=== PATIENT | male | born 1950 | race African-American/Black ===

== ENCOUNTER 2018-04-23 19:10 | Inpatient (IN) | payer MEDICARE, MEDICAID ==
[~2018-04-23] VITALS: Ht 170.2 cm; Wt 77.1 kg
[2018-04-23] MEDS ORDERED: MORPHINE SULFATE 4 MG/ML CPJ (NOT FOR IM USE) IV STA (20:37)
[2018-04-23] MEDS ORDERED: ONDANSETRON HCL 4MG/2ML INJ IV STA (20:37)
[2018-04-23 21:59] LABS: BASOPHILS % 0.2 % (0.0-2.0); EOSINOPHILS % 1.6 % (0.0-5.0); HEMATOCRIT. 43.7 % (42.0-52.0); LYMPHOCYTES % 16.6 % (20.0-50.0); MEAN CORPUSCULAR HEMOGLOBIN 28.5 pg (28.0-32.0); MEAN CORPUSCULAR VOLUME 88.9 fL (80.0-94.0); MEAN PLATELET VOLUME 9.2 fl (7.4-10.4); MONOCYTES % 10.1 % (2.0-8.0); NEUTROPHILS % 71.5 % (40.0-76.0); PLATELET 143 x1000/uL (130-400); RED BLOOD CELL COUNT 4.92 mill/uL (4.7-6.1); RED CELL DISTRIBUTION WIDTH 14.3 % (11.6-14.6)
[2018-04-23 22:05] LABS: CHLORIDE 107 mEq/L (98-107); PROTHROMBIN TIME 10.4 sec (9.1-11.1)
[2018-04-24] VITALS (7 sets, daily range): BP systolic 102–115; BP diastolic 55–79
[2018-04-24] MEDS ORDERED: ONDANSETRON HCL 4MG/2ML INJ IV PRN ×3 (00:30→11:15)
[2018-04-24] MEDS ORDERED: IPRATROPIUM/ALBUTEROL 0.5-3(2.5)MG/3ML NEB INH PRN (00:30)
[2018-04-24] MEDS ORDERED: DIPHENHYDRAMINE 50MG/ML VIAL IV PRN (00:30)
[2018-04-24] MEDS ORDERED: KETOROLAC 30MG/ML VIAL IV PRN (00:45)
[2018-04-24] MEDS ORDERED: HYDROMORPHONE HCL/PF 2MG/ML CPJ IV PRN ×2 (00:45→11:15)
[2018-04-24] MEDS ORDERED: DEXT 5%/0.45% NACL 1000ML 1,000 ML IV SCH (02:30)
[2018-04-24] MEDS: FAMOTIDINE 20MG/2ML VIAL IV SCH ×2 (09:07→21:43)
[2018-04-24] MEDS ORDERED: SKIN ADHESIVE 0.7 GM EA TOP ONE (09:22)
[2018-04-24] MEDS ORDERED: BUPIVACAINE HCL 0.5% (5MG/ML) 50ML ONE (09:22)
[2018-04-24] MEDS ORDERED: HYDROCODONE/ACETAMINOPHEN 5/325MG TABLET PO PRN ×2 (09:30)
[2018-04-24] MEDS ORDERED: GLYCOPYRROLATE 0.2 MG/ML 2ML VIAL ONE (09:58)
[2018-04-24] MEDS ORDERED: SODIUM CHLORIDE 0.9% 10ML VIAL ONE (09:58)
[2018-04-24] MEDS ORDERED: FENTANYL CITRATE/PF 50MCG/ML 2ML VIAL ONE (09:58)
[2018-04-24] MEDS ORDERED: ROCURONIUM BROMIDE 10MG/ML VIAL 5ML IV ONE (09:58)
[2018-04-24] MEDS ORDERED: PROPOFOL 200MG/20ML VIAL IV ONE (09:58)
[2018-04-24] MEDS ORDERED: NEOSTIGMINE METHYLSULFATE 1MG/ML 10 ML VIAL ONE (09:58)
[2018-04-24] MEDS ORDERED: SUCCINYLCHOLINE CHLORIDE 200MG/10ML IV ONE (09:58)
[2018-04-24] MEDS ORDERED: MIDAZOLAM HCL 2 MG/2 ML VIAL ONE (09:58)
[2018-04-24] MEDS ORDERED: CEFAZOLIN SODIUM 1000MG/VIAL ONE (09:58)
[2018-04-24] MEDS ORDERED: DEXAMETHASONE 4MG/ML 1ML VIAL ONE (09:59)
[2018-04-24] MEDS ORDERED: EPHEDRINE SULFATE 50MG/ML VIAL ONE (09:59)
[2018-04-24] MEDS ORDERED: PHENYLEPHRINE HCL 10 MG/ML 1ML (IV VIAL) IV ONE (09:59)
[2018-04-24] MEDS ORDERED: METOCLOPRAMIDE HCL 10MG/2ML VIAL ONE (09:59)
[2018-04-24] MEDS ORDERED: ONDANSETRON HCL 4MG/2ML INJ ONE (09:59)
[2018-04-24] MEDS ORDERED: ALBUMIN HUMAN 12.5G/250ML (5%) IV ONE (10:29)
[2018-04-24] MEDS ORDERED: SODIUM CHLORIDE 0.9% 1,000 ML IV ONE (11:13)
[2018-04-24] MEDS ORDERED: MEPERIDINE HCL/PF 25MG/ML CPJ IV PRN ×2 (11:15)
[2018-04-24] MEDS: ACETAMINOPHEN 325MG TABLET PO PRN (16:06)
[2018-04-24] MEDS: DEXT 5%/0.45% NACL KCL 20MEQ/L 1,000 ML IV SCH ×2 (16:19→21:48)
[2018-04-25] VITALS (7 sets, daily range): BP systolic 107–123; BP diastolic 53–73
[2018-04-25] MEDS: DEXT 5%/0.45% NACL KCL 20MEQ/L 1,000 ML IV SCH ×2 (06:00→15:36)
[2018-04-25] MEDS: FAMOTIDINE 20MG/2ML VIAL IV SCH ×3 (08:36→21:51)
[2018-04-25] MEDS ORDERED: BISACODYL 10MG SUPP PR NR (15:15)
[2018-04-25] MEDS ORDERED: MAGNESIUM CITRATE 300ML SOLUTION PO NR (19:00)
[2018-04-25] MEDS: ACETAMINOPHEN 325MG TABLET PO PRN (19:55)
[2018-04-26] VITALS: BP 111/72
[2018-04-26] MEDS: DEXT 5%/0.45% NACL KCL 20MEQ/L 1,000 ML IV SCH ×3 (02:00→20:09)
[2018-04-26 04:00] VITALS: BP 104/63
[2018-04-26 08:00] VITALS: BP 107/70
[2018-04-26] MEDS: FAMOTIDINE 20MG/2ML VIAL IV SCH ×2 (08:40→20:09)
[2018-04-26 12:00] VITALS: BP 101/67
[2018-04-26] MEDS ORDERED: SORBITOL 70% SOLN 30ML PO SCH (13:30)
[2018-04-26] MEDS: BISACODYL 10MG SUPP PR SCH ×2 (13:30→19:47)
[2018-04-26] MEDS: LACTULOSE 20G/30ML UDC PO SCH ×2 (15:20→21:46)
[2018-04-26 16:00] VITALS: BP 111/79
[2018-04-26 20:00] VITALS: BP 112/73
[2018-04-27] VITALS: BP 102/63
[2018-04-27 04:00] VITALS: BP 104/64
[2018-04-27] MEDS: LACTULOSE 20G/30ML UDC PO SCH ×2 (04:59→14:00)
[2018-04-27 08:00] VITALS: BP 111/70
[2018-04-27] MEDS: DEXT 5%/0.45% NACL KCL 20MEQ/L 1,000 ML IV SCH ×2 (08:00→18:00)
[2018-04-27] MEDS: FAMOTIDINE 20MG/2ML VIAL IV SCH (09:00)
[2018-04-27 12:00] VITALS: BP 106/69
[2018-04-27 16:00] VITALS: BP 101/63
[2018-04-27 21:07] VITALS: BP 111/62
== END 2018-04-27 21:20 | disposition home or self-care (01) | DRG 228 ==
LOC: ER 19:10 → 6EST 22:31 → EDBEDREQ 22:32 → EDBEDREQTM 22:32 → ENRESERV 04-24 00:19 → EDBEDREQSVC 04-24 00:55 → EDBEDREQTM 04-24 00:55 → ENRESERV 04-24 01:13
PROVIDERS: ADMIT Internal Medicine; ATTEND Internal Medicine
PROC: 0YU50JZ Supplement Right Inguinal Region with Synthetic Substitute, Open Approach (ICD-10-PCS; principal; 2018-04-24)
DX: K40.30 Unilateral inguinal hernia, with obstruction, without gangrene, not specified as recurrent (principal); G82.50 Quadriplegia, unspecified; E78.00 Pure hypercholesterolemia, unspecified; M47.9 Spondylosis, unspecified; M48.02 Spinal stenosis, cervical region
CPT/HCPCS: 36415; 74018; 74176; 93005; 96361; 96374; 97163; 99285; C1781; J0330; J0690; J1100; J1170; J2250; J2270; J2370; J2405; J2704; J2710; J2765; J3010; J3490; P9041